=== PATIENT | female | born 2000 | race Caucasian/White ===

== ENCOUNTER → 2024-02-24 15:52 | Outpatient (REF) | payer OTHER, SELFPAY | LOC: HWRAD 15:52 | PROVIDERS: ATTENDING PHYSICIAN Otolaryngology; FAMILY PHYSICIAN Pediatrics | DX: J32.0 Chronic maxillary sinusitis (principal) | CPT/HCPCS: 70486 ==

== ENCOUNTER 2024-05-13 23:39 | Emergency (ER) | payer OTHER, SELFPAY ==
[2024-05-13 23:51] VITALS: BP 111/78
[2024-05-14 00:13] LABS: Urine Albumin 3+ (Neg - Trace); Urine Bilirubin Negative (Negative); Urine Character Bloody (Clear); Urine Color Red; Urine Glucose Negative (Negative); Urine Ketone Trace (Negative); Urine Leukocyte 2+ (Negative); Urine Nitrite Positive (Negative); Urine Occult Blood 4+ (Negative); Urine Specific Gravity 1.015 (<1.030); Urine Urobilinogen Negative (Neg - 1+)
--- NOTE | 2024-05-14 00:18 | ED.GENMED ---
History of Present Illness
General
Chief Complaint: Urinary Symptoms
Source: patient
Exam Limitations: none
Time Seen by Provider: 05/14/24 00:18
History of Present Illness
History of Present Illness:
23-year-old female presents with dysuria, urinary frequency, urinary urgency. Patient had some frequency over the last day or so but those related to being down sure. Today started having pain. She also noticed blood. No back pain or vomiting.
No abdominal pain.
Past History
Past History
ED Past Medical History: None
Social History
Tobacco: Non-smoker
Alcohol: None
Personal: Single
Living: with roommate
Employment: Student
Phy Exam
Physical Exam
Physical Exam:
CONSTITUTIONAL Patient alert and oriented to person, place and time. Well-appearing. Vital signs reviewed.
HEAD atraumatic, normocephalic.
EYES eyelids normal to inspection, Extraocular muscles intact, Conjunctiva normal, Sclera normal.
NECK normal range of motion, Trachea midline, no jugular venous distention.
RESPIRATORY CHEST No respiratory distress noted, Chest expansion equal,
ABDOMEN abdomen nontender, Bowel sounds normal. No distention.
BACK normal inspection, no obvious deformities, no CVA tenderness
UPPER EXTREMITY range of motion normal, Motor strength normal, no cyanosis, no edema.
LOWER EXTREMITY range of motion normal, Motor strength normal, no cyanosis, no edema.
NEURO Speech normal, No focal motor deficits, [place] coma scale 15, Memory normal, Cranial Nerves intact to screening exam.
SKIN skin warm, dry, and normal in color.
PSYCHIATRIC patient oriented to person place and time, Normal affect.
Course
Orders/Labs/Results
Orders:
Orders
05/13/24 23:54
Urinalysis Reflex To Culture Urgent
Date Specimen was Collected: 05/13/24
Time Specimen was Collected: 23:55
05/14/24 00:00
Urine Microscopic Reflex Cult Urgent
Urine Culture Urgent
CRISTIAN Source: U
Specimen Description:
Date Specimen was Collected: 05/13/24
Time Specimen was Collected: 23:55
05/14/24 00:18
Add On- LAB Urgent
Tests Added?: urine HGC
05/14/24 00:44
Cephalexin Monohydrate [Keflex] 500 mg PO NOW STA
05/14/24 00:55
Fosfomycin [Monurol] 3 gm PO ONCE ONE
05/14/24 00:59
Phenazopyridine HCl [Pyridium] 200 mg PO NOW STA
05/14/24 01:03
Fosfomycin [Monurol] 3 gm .ROUTE .STK-MED ONE
Abnormal Lab Results
05/14/24
00:00
Urine Ketones Trace A
(Negative)
Ur Occult Blood Reflex 4+ A
(Negative)
Urine Nitrite (Reflex) Positive A
(Negative)
Leukocyte Esterase Rfl 2+ A
(Negative)
Urine RBC >100 A /HPF
(0-2)
Urine WBC (Reflex) 26-30 A /HPF
(0-5)
Urine Bacteria (Reflex) Moderate A
(Negative)
Urine Albumin (Reflex) 3+ A
(Neg - Trace)
Vital Signs
Initial and Last Documented VS:
Initial Vital Signs
Temp Pulse Resp BP Pulse Ox
98.1 F 80 20 111/78 98
05/13/24 23:51 05/13/24 23:51 05/13/24 23:51 05/13/24 23:51 05/13/24 23:51
Last Documented Vital Signs
Temp Pulse Resp BP Pulse Ox
98.1 F 80 20 111/78 98
05/13/24 23:51 05/13/24 23:51 05/13/24 23:51 05/13/24 23:51 05/13/24 23:51
MDM/Problems Addressed
MDM/Problems Addressed:
UTI
*Pulse Oximetry
Patient hypoxic: no
*Critical Care Note
Total Time (30-74mins, 75-104mins- exclusive of procedures): Not Applicable
Data Reviewed
Source: patient
Prescriptions/Medications Considered But Not Given:
Considered Bactrim and Keflex but will treat with fosfomycin x 1 dose
Patient Management
Escalation/DeEscalation of care consider admission/obs:
Treat for simple UTI. Okay for discharge
ED Attending Note
-
Portions of this chart may have been created with voice recognition software.� Occasional wrong word or��sound alike� substitutions may have occurred due to the inherent limitations of voice recognition software.
Discharge Plan
Departure
Patient Disposition: Home (Routine Discharge)
Date of Disposition: 05/14/24
Time of Disposition: 00:45
Patient with high blood pressure during this ER visit?: No
Discharge Problem:
UTI (urinary tract infection)
Instructions: Urinary Tract Infection, Adult (DC)
Prescriptions:
No Action
Probiotic 3 billion cell Capsule
3,000 mmu cells PO DAILY
Activity Restrictions/Additional Instructions:
Please drink plenty fluids. Use Tylenol for pain control. Return immediately for worsening symptoms, fevers, back pain, vomiting or any other concerns.
Interventions
Interventions:
*Risk Screen - Suicide Last Done: 05/13/24 23:51
*General Assessment Last Done: 05/13/24 23:51
*Neglect/Abuse Screening Last Done: 05/13/24 23:51
ED- Fall Risk Assessment Last Done: 05/13/24 23:51
*ED COVID-19 Vaccine History Last Done: 05/13/24 23:51
ED-Female Genitourinary Assessment Last Done: 05/14/24 00:15
Discharge Date and Time
Print Language: WELSH
[2024-05-14 00:22] VITALS: BMI 20.1
[2024-05-14 00:42] LABS: Urine Red Blood Cell >100 /HPF (0-2); Urine Squamous Cell 0-2 /LPF (Few)
[2024-05-14 00:43] LABS: Urine Bacteria Moderate (Negative); Urine White Cell 26-30 /HPF (0-5)
[2024-05-14] MEDS: Pyridium 200 MG PO (01:08)
[2024-05-14] MEDS: MONUROL 3 GM PO (01:08)
[2024-05-14 01:10] VITALS: BP 108/91
== END 2024-05-14 01:10 | disposition home or self-care (01) ==
LOC: EMR 23:39
PROVIDERS: Student in an Organized Health Care Education/Training Program; EMERGENCY PHYSICIAN Emergency Medicine; FAMILY PHYSICIAN Pediatrics
DX: N39.0 Urinary tract infection, site not specified (principal)
CPT/HCPCS: 99283; 81003; 81015; 87077; 87086; 87186

== ENCOUNTER 2024-08-19 09:22 | Emergency (ER) | payer OTHER, SELFPAY ==
[2024-08-19 09:32] VITALS: BP 130/93
[2024-08-19 10:43] LABS: Urine Albumin Negative (Neg - Trace); Urine Bilirubin Negative (Negative); Urine Character Clear (Clear); Urine Color Yellow; Urine Glucose Negative (Negative); Urine Ketone Negative (Negative); Urine Leukocyte 2+ (Negative); Urine Nitrite Negative (Negative); Urine Occult Blood 4+ (Negative); Urine Specific Gravity 1.005 (<1.030); Urine Urobilinogen Negative (Neg - 1+)
[2024-08-19 10:59] LABS: Urine Bacteria Few (Negative); Urine Red Blood Cell 0-2 /HPF (0-2); Urine White Cell 26-30 /HPF (0-5)
[2024-08-19 11:33] LABS: HCG, Urine Qualitative Screen Negative
--- NOTE | 2024-08-19 11:56 | ED.GENMED ---
History of Present Illness
<Nakul Chu MD - Last Filed: 08/19/24 14:06>
General
Chief Complaint: Urinary Symptoms
Source: patient
Exam Limitations: none
Time Seen by Provider: 08/19/24 11:11
History of Present Illness
History of Present Illness:
24-year-old female complaining of ongoing urinary symptoms. Started months ago. Initially treated for UTI. However these symptoms have persistent intermittently since then. Was slightly worse today. Menstrual period normal. No fever. No flank
pain. No change in bowels.
Past History
<Nakul Chu MD - Last Filed: 08/19/24 14:06>
Past History
ED Past Medical History: None
Social History
Tobacco: Non-smoker
Alcohol: None
Personal: Single
Living: with roommate
Employment: Student
Course
<Nakul Chu MD - Last Filed: 08/19/24 14:06>
Orders/Labs/Results
Orders:
Orders
08/19/24 09:41
HCG, Urine Qualitative Screen Urgent
Date Specimen was Collected: 08/19/24
Time Specimen was Collected: 09:36
Comment: ADD
Urinalysis Reflex To Culture Urgent
Date Specimen was Collected: 08/19/24
Time Specimen was Collected: 09:36
Urine Microscopic Reflex Cult Urgent
Chlamydia/GC by PCR Urgent
CRISTIAN Source: U
Specimen Description:
Source:: URINE
Date Specimen was Collected: 08/19/24
Time Specimen was Collected: 09:36
Comment: ADD ON
Urine Culture Urgent
CRISTIAN Source: U
Specimen Description:
Date Specimen was Collected: 08/19/24
Time Specimen was Collected: 09:36
08/19/24 11:13
Add On- LAB Urgent
Tests Added?: urine hcg
08/19/24 11:18
US Pelvis Only (non-obstetric) Urgent
Comment:
Reason For Exam: Of ongoing pelvic pain/urinary symptoms
US Renal With Bladder Urgent
Comment: bladder not full ok, looking at ureteral jets
Reason For Exam: Ongoing pelvic pain/recurrent urinary symptoms
08/19/24 11:19
Add On- LAB Urgent
Tests Added?: urine gc/chlymadia
US Abdomen - Appendix Only Urgent
Comment:
Reason For Exam: Ongoing pelvic pain
08/19/24 14:06
Ceftriaxone Sodium [Rocephin] 500 mg IM NOW STA
Doxycycline [Vibramycin] 100 mg PO NOW STA
Abnormal Lab Results
08/19/24
09:41
Ur Occult Blood Reflex 4+ A
(Negative)
Leukocyte Esterase Rfl 2+ A
(Negative)
Urine WBC (Reflex) 26-30 A /HPF
(0-5)
Urine Bacteria (Reflex) Few A
(Negative)
Vital Signs
Initial and Last Documented VS:
Initial Vital Signs
Temp Pulse Resp BP Pulse Ox
98.0 F 104 16 130/93 98
08/19/24 09:32 08/19/24 09:32 08/19/24 09:32 08/19/24 09:32 08/19/24 09:32
Last Documented Vital Signs
Temp Pulse Resp BP Pulse Ox
98.0 F 78 16 135/72 98
08/19/24 09:32 08/19/24 14:23 08/19/24 14:23 08/19/24 14:23 08/19/24 14:23
<Azalia Barlow PA-C - Last Filed: 08/21/24 07:49>
Orders/Labs/Results
Orders:
Orders
08/19/24 09:41
HCG, Urine Qualitative Screen Urgent
Date Specimen was Collected: 08/19/24
Time Specimen was Collected: 09:36
Comment: ADD
Urinalysis Reflex To Culture Urgent
Date Specimen was Collected: 08/19/24
Time Specimen was Collected: 09:36
Urine Microscopic Reflex Cult Urgent
Chlamydia/GC by PCR Urgent
CRISTIAN Source: U
Specimen Description:
Source:: URINE
Date Specimen was Collected: 08/19/24
Time Specimen was Collected: 09:36
Comment: ADD ON
Urine Culture Urgent
CRISTIAN Source: U
Specimen Description:
Date Specimen was Collected: 08/19/24
Time Specimen was Collected: 09:36
08/19/24 11:13
Add On- LAB Urgent
Tests Added?: urine hcg
08/19/24 11:18
US Pelvis Only (non-obstetric) Urgent
Comment:
Reason For Exam: Of ongoing pelvic pain/urinary symptoms
US Renal With Bladder Urgent
Comment: bladder not full ok, looking at ureteral jets
Reason For Exam: Ongoing pelvic pain/recurrent urinary symptoms
08/19/24 11:19
Add On- LAB Urgent
Tests Added?: urine gc/chlymadia
US Abdomen - Appendix Only Urgent
Comment:
Reason For Exam: Ongoing pelvic pain
08/19/24 14:06
Ceftriaxone Sodium [Rocephin] 500 mg IM NOW STA
Doxycycline [Vibramycin] 100 mg PO NOW STA
Abnormal Lab Results
08/19/24
09:41
Ur Occult Blood Reflex 4+ A
(Negative)
Leukocyte Esterase Rfl 2+ A
(Negative)
Urine WBC (Reflex) 26-30 A /HPF
(0-5)
Urine Bacteria (Reflex) Few A
(Negative)
Vital Signs
Initial and Last Documented VS:
Initial Vital Signs
Temp Pulse Resp BP Pulse Ox
98.0 F 104 16 130/93 98
08/19/24 09:32 08/19/24 09:32 08/19/24 09:32 08/19/24 09:32 08/19/24 09:32
Last Documented Vital Signs
Temp Pulse Resp BP Pulse Ox
98.0 F 78 16 135/72 98
08/19/24 09:32 08/19/24 14:23 08/19/24 14:23 08/19/24 14:23 08/19/24 14:23
<Nakul Cosby PA-C - Last Filed: 08/22/24 12:46>
Orders/Labs/Results
Orders:
Orders
08/19/24 09:41
HCG, Urine Qualitative Screen Urgent
Date Specimen was Collected: 08/19/24
Time Specimen was Collected: 09:36
Comment: ADD
Urinalysis Reflex To Culture Urgent
Date Specimen was Collected: 08/19/24
Time Specimen was Collected: 09:36
Urine Microscopic Reflex Cult Urgent
Chlamydia/GC by PCR Urgent
CRISTIAN Source: U
Specimen Description:
Source:: URINE
Date Specimen was Collected: 08/19/24
Time Specimen was Collected: 09:36
Comment: ADD ON
Urine Culture Urgent
CRISTIAN Source: U
Specimen Description:
Date Specimen was Collected: 08/19/24
Time Specimen was Collected: 09:36
08/19/24 11:13
Add On- LAB Urgent
Tests Added?: urine hcg
08/19/24 11:18
US Pelvis Only (non-obstetric) Urgent
Comment:
Reason For Exam: Of ongoing pelvic pain/urinary symptoms
US Renal With Bladder Urgent
Comment: bladder not full ok, looking at ureteral jets
Reason For Exam: Ongoing pelvic pain/recurrent urinary symptoms
08/19/24 11:19
Add On- LAB Urgent
Tests Added?: urine gc/chlymadia
US Abdomen - Appendix Only Urgent
Comment:
Reason For Exam: Ongoing pelvic pain
08/19/24 14:06
Ceftriaxone Sodium [Rocephin] 500 mg IM NOW STA
Doxycycline [Vibramycin] 100 mg PO NOW STA
Abnormal Lab Results
08/19/24
09:41
Ur Occult Blood Reflex 4+ A
(Negative)
Leukocyte Esterase Rfl 2+ A
(Negative)
Urine WBC (Reflex) 26-30 A /HPF
(0-5)
Urine Bacteria (Reflex) Few A
(Negative)
Vital Signs
Initial and Last Documented VS:
Initial Vital Signs
Temp Pulse Resp BP Pulse Ox
98.0 F 104 16 130/93 98
08/19/24 09:32 08/19/24 09:32 08/19/24 09:32 08/19/24 09:32 08/19/24 09:32
Last Documented Vital Signs
Temp Pulse Resp BP Pulse Ox
98.0 F 78 16 135/72 98
08/19/24 09:32 08/19/24 14:23 08/19/24 14:23 08/19/24 14:23 08/19/24 14:23
<Nakul Chu MD - Last Filed: 08/19/24 14:06>
*Radiology
Radiology exam reviewed: radiology read reviewed (Hydrosalpinx otherwise unremarkable)
*Pulse Oximetry
Patient hypoxic: no
<Nakul Chu MD - Last Filed: 08/19/24 14:06>
Update Note
Update Note:
Possible UTI. Hydrosalpinx may be causing some pelvic symptoms. Discussed with ZIPPER REPAIRER. Rocephin Doxy and follow-up.
<Azalia Barlow PA-C - Last Filed: 08/21/24 07:49>
Update Note
Update Note:
Possible UTI. Hydrosalpinx may be causing some pelvic symptoms. Discussed with ZIPPER REPAIRER. Rocephin Doxy and follow-up.
08/21/2024 0749 AM
urine culture preiminary gram neg bacilli
on doxy and given rocephin
await sensitivities.
<Nakul Cosby PA-C - Last Filed: 08/22/24 12:46>
Update Note
Update Note:
Possible UTI. Hydrosalpinx may be causing some pelvic symptoms. Discussed with ZIPPER REPAIRER. Rocephin Doxy and follow-up.
08/21/2024 0749 AM
urine culture preiminary gram neg bacilli
on doxy and given rocephin
await sensitivities.
Patient's urine culture grew Klebsiella pneumonia a�ESBL. Patient was contacted and states she still feels discomfort. Patient switched to ciprofloxacin. She will follow-up with urology. Aware of return precautions to the ER.
ED Attending Note
<Nakul Chu MD - Last Filed: 08/19/24 14:06>
-
Portions of this chart may have been created with voice recognition software.� Occasional wrong word or��sound alike� substitutions may have occurred due to the inherent limitations of voice recognition software.
Discharge Plan
Departure
Patient Disposition: Home (Routine Discharge)
Date of Disposition: 08/19/24
Time of Disposition: 14:03
Patient with high blood pressure during this ER visit?: Yes
Discharge Problem:
Dysuria/pelvic pain, Right hydrosalpinx, Possible UTI
Instructions: Urinary Tract Infection, Adult (DC), Pelvic Pain (DC)
Prescriptions:
New
doxycycline hyclate 100 mg capsule
100 mg PO BID 7 Days Qty: 14 0RF
ciprofloxacin HCl [Cipro] 500 mg tablet
500 mg PO BID 5 Days Qty: 10 0RF
No Action
Probiotic 3 billion cell Capsule
3,000 mmu cells PO DAILY
Referrals:
Lidya Parmar MD [Active] - Next open appointment
NONE,* [Family Provider] -
Josh Hooper MD [Active] - Next open appointment
Activity Restrictions/Additional Instructions:
The prescriptions were sent to your pharmacy
Follow-up with ZIPPER REPAIRER. I listed the ZIPPER REPAIRER that I discussed the case with here.
Also can follow-up with urology
Interventions
Interventions:
*Risk Screen - Suicide Last Done: 08/19/24 09:32
*General Assessment Last Done: 08/19/24 11:30
*Neglect/Abuse Screening Last Done: 08/19/24 09:32
*ED COVID-19 Vaccine History Last Done: 08/19/24 11:30
*Nursing Disposition Last Done: 08/19/24 14:20
Discharge Date and Time
Discharge Date/Time: 08/19/24 14:20
Print Language: GABONESE
[2024-08-19] MEDS: VIBRAMYCIN 100 MG PO (14:12)
[2024-08-19] MEDS: ROCEPHIN 500 MG IM (14:12)
[2024-08-19 14:23] VITALS: BP 135/72
== END 2024-08-19 14:20 | disposition home or self-care (01) ==
LOC: EMR 09:22
PROVIDERS: EMERGENCY PHYSICIAN Emergency Medicine
DX: N70.11 Chronic salpingitis (principal); R10.2 Pelvic and perineal pain; R30.0 Dysuria; R03.0 Elevated blood-pressure reading, without diagnosis of hypertension
CPT/HCPCS: 99284; 96372; 76705; 76770; 76856; 81003; 81015; 81025; 87077; 87086; 87186; 87491; 87591

== ENCOUNTER → 2024-12-10 07:43 | Outpatient (REF) | payer BC, SELFPAY | LOC: HWRAD 07:43 | PROVIDERS: ATTENDING PHYSICIAN Nurse Practitioner Women's Health | DX: N70.11 Chronic salpingitis (principal) | CPT/HCPCS: 76830; 76856 ==

== ENCOUNTER 2025-02-19 08:51 | Emergency (ER) | payer BC, SELFPAY ==
[2025-02-19 08:53] VITALS: BP 113/68
--- NOTE | 2025-02-19 10:05 | ED.GENMED ---
History of Present Illness
General
Chief Complaint: Eye Problems
Source: patient
Exam Limitations: none
Time Seen by Provider: 02/19/25 09:41
History of Present Illness
History of Present Illness:
24yoF with no significant past medical history presenting for evaluation of left periorbital swelling. Symptoms began 2 days ago with a stye to her left upper eyelid. She developed swelling to the eyelid yesterday and was seen by her eye doctor.
She was prescribed Keflex for concern for cellulitis. She has taken 3 doses so far. There was some swelling inferior to the eye when she woke up this morning which prompted her to come to the ED. She reports that her vision is slightly blurry
because she is unable to close her eye fully. No fevers or chills.
Past History
Past History
ED Past Medical History: None
Social History
Tobacco: Non-smoker
Alcohol: None
Personal: Single
Living: with roommate
Employment: Student
Phy Exam
General Physical Exam
General Presentation: well appearing and no apparent distress
General age: appears stated age
General Skin: warm and dry
General Habitus: normal
ENT Exam
ENT Exam: normocephalic
Eye Exam
Eye Exam: PERRL, EOMI, conjunctiva normal and other (Hordeolum noted to L lateral upper lid with swelling/erythema to the upper eyelid. Able to open eye fully. There is some mild swelling inferior to the eye. Conjunctiva appears normal. No proptosis
or pain with eye movement. )
Neurological Exam
Neurological Exam: alert
Skin Exam
Skin Exam: warm/dry
Psychiatric Exam
Psychiatric Exam: normal mood/affect
Course
Orders/Labs/Results
Orders:
Orders
02/19/25 10:02
0.9% Sodium Chloride 1000 ml [Nss] 1,000 ml IV BOLUS
CeFAZolin 2 GRAM [Ancef] 2 grams in 10 ml IV NOW
Ketorolac [Toradol] 15 mg IV NOW STA
Test Result ONCE
02/19/25 10:49
Complete Blood Count/With Diff Urgent
Comprehensive Metabolic Panel Urgent
HCG, Serum Qualitative Screen Urgent
Abnormal Lab Results
02/19/25
10:49
MCV 75.4 L fL
(81.0-99.0)
MCH 25.4 L pg
(27.0-31.0)
Monocytes % 10.8 H %
(1.7-9.3)
Chloride 109 H mmol/L
(98-107)
Carbon Dioxide 19 L mmol/L
(22-30)
02/19/25 10:49
02/19/25 10:49
Vital Signs
Initial and Last Documented VS:
Initial Vital Signs
Temp Pulse Resp BP Pulse Ox
98.1 F 112 20 113/68 98
02/19/25 08:53 02/19/25 08:53 02/19/25 08:53 02/19/25 08:53 02/19/25 08:53
Last Documented Vital Signs
Temp Pulse Resp BP Pulse Ox
98.1 F 112 20 113/68 98
02/19/25 08:53 02/19/25 08:53 02/19/25 08:53 02/19/25 08:53 02/19/25 08:53
MDM/Problems Addressed
Differential Diagnosis Includes:
24yoF here with L periorbital swelling. Started with a stye 2 days ago. Started on Keflex by her eye doctor yesterday. Woke up with worsening redness. No f/c. She is well appearing in no distress. On exam, the majority of the erythema is localized
to the upper eyelid with evidence of a stye. There is faint erythema/swelling inferior to the eye. No clinical signs of orbital cellulitis. L conjunctiva appears normal and there is no proptosis or pain with EOMs. Differential diagnosis includes:
hordeolum, periorbital cellulitis
Initial ED plan: Check CBC and CMP. Will give dose of IV Ancef.
*Critical Care Note
Total Time (30-74mins, 75-104mins- exclusive of procedures): Not Applicable
Update Note
Update Note:
Labs overall unremarkable including normal white count. Patient does feel slightly improved on reassessment. She has not had a full 24 hours of antibiotics yet so has not failed outpatient therapy. UpToDate reviewed and Augmentin is recommended
antibiotic for nontraumatic periorbital cellulitis. Will switch abx to Augmentin. She was advised to continue warm compresses and massage. Advised close f/u with eye doctor and strict ED return precautions reviewed. Patient and father in agreement
with plan and she was discharged in stable condition.
ED Attending Note
-
Portions of this chart may have been created with voice recognition software.� Occasional wrong word or��sound alike� substitutions may have occurred due to the inherent limitations of voice recognition software.
Discharge Plan
Departure
Patient Disposition: Home (Routine Discharge)
Date of Disposition: 02/19/25
Time of Disposition: 11:48
Patient with high blood pressure during this ER visit?: No
Discharge Problem:
Hordeolum of left eye, Periorbital cellulitis of left eye
Instructions: Stye, Periorbital Cellulitis
Prescriptions:
New
amoxicillin-pot clavulanate 875-125 mg tablet
1 tab PO BID Qty: 14 0RF
No Action
Probiotic 3 billion cell Capsule
3,000 mmu cells PO DAILY
doxycycline hyclate 100 mg capsule
100 mg PO BID 7 Days Qty: 14 0RF
ciprofloxacin HCl [Cipro] 500 mg tablet
500 mg PO BID 5 Days Qty: 10 0RF
Referrals:
Pablo Tate I., DO [Family Provider] -
Activity Restrictions/Additional Instructions:
Switch antibiotics to Augmentin. Continue warm compresses and massage.
Please follow-up with your family doctor in 3 to 4 days. Return to the ER with any worsening symptoms including spreading redness, new visual changes, fevers, or if you do not see any improvement in the next 48 hours.
Interventions
Interventions:
*Risk Screen - Suicide Last Done: 02/19/25 10:00
*General Assessment Last Done: 02/19/25 10:00
*Neglect/Abuse Screening Last Done: 02/19/25 10:00
*ED- Fall Risk Assessment Last Done: 02/19/25 10:00
*ED COVID-19 Vaccine History Last Done: 02/19/25 10:00
*Nursing Disposition Last Done: 02/19/25 12:14
Discharge Date and Time
Discharge Date/Time: 02/19/25 12:14
Print Language: YI
[2025-02-19] MEDS: TORADOL 15 MG IV (10:52)
[2025-02-19] MEDS: NSS 1000 IV (10:53)
[2025-02-19] MEDS: ANCEF 10 IV (10:53)
[2025-02-19 11:04] LABS: % Basophils 0.5 % (0-2); % Eosinophils 2.5 % (0-6); % Immature Granulocytes 0.2 % (0-0.5); % Monocytes 10.8 % (1.7-9.3); Absolute Eosinophils 0.1 10^3/uL (0-0.7); Absolute Lymphocytes 1.5 10^3/uL (1.2-3.4); Absolute Monocytes 0.6 10^3/uL (0.1-0.6); Absolute Neutrophils 3.4 10^3/uL (1.4-6.5); Hematocrit 38.6 % (37.0-47.0); Mean Corp Hgb Conc. 33.7 g/dL (33.0-37.0); Mean Corpuscular Hgb 25.4 pg (27.0-31.0); Mean Corpuscular Volume 75.4 fL (81.0-99.0); Mean Platelet Volume 10.4 fL (7.4-10.4); Nucleated Red Blood Cells % 0 %; Platelet Count 218 10^3/uL (130-400); Red Blood Cell Count 5.12 10^6/uL (4.20-5.40); Red Cell Dist. Width 14.5 % (11.5-14.5); White Blood Cell Count 5.7 10^3/uL (4.8-10.8)
[2025-02-19 11:07] LABS: HCG, Serum Qualitative Screen Negative
[2025-02-19 11:09] LABS: ALT (SGPT) 17 U/L (0-35); AST (SGOT) 21 U/L (14-36); Albumin 4.8 g/dl (3.5-5.0); Alkaline Phosphatase 71 U/L (38-126); Blood Urea Nitrogen 10 mg/dl (7-17); Calcium 9.4 mg/dl (8.4-10.2); Carbon Dioxide 19 mmol/L (22-30); Chloride 109 mmol/L (98-107); Glucose 83 mg/dl (70-99); Potassium 4.1 mmol/L (3.5-5.1); Sodium 142 mmol/L (135-145); Total Bilirubin 0.4 mg/dl (0.2-1.3); Total Protein 7.6 g/dl (6.3-8.2); eGFR > 60.00
== END 2025-02-19 12:14 | disposition home or self-care (01) ==
LOC: EMR 08:51
PROVIDERS: Physician Assistant; EMERGENCY PHYSICIAN Emergency Medicine; FAMILY PHYSICIAN Internal Medicine
DX: H00.016 Hordeolum externum left eye, unspecified eyelid (principal); L03.213 Periorbital cellulitis
CPT/HCPCS: 99283; 96374; 96375; 96361; 80053; 84703; 85025